=== PATIENT | male | born 1940 | race Caucasian/White ===

== ENCOUNTER 2017-02-15 10:40 | Day surgery (SDC) | payer MEDICARE ==
--- NOTE | ~2017-02-15 | EGD ---
EGD REPORT [facility] [address] [place] [address] NAME: LALIT SALINAS : [birth year] STATUS : REG [facility]#: [id number] AGE: 76 ADM/REG DATE : 02/15/17 MR#: [id number] REPORT SERV DATE: 02/15/17 DICTATED BY: ANDREW VAUGHAN DATE: 02/15/17 REPORT STATUS : Draft TRANSCRIBED BY: [facility] DATE: 02/15/17 Endoscopy Center Patient Name: Lalit Salinas Date of : 1940 Attending MD: ANDREW VAUGHAN, Procedure Date No Time: 02/15/2017 Procedure: Upper EUS Indications: Abnormal abdominal PET scan. Periduodenal lesion noted with uptake. History of Lung squamous cell cancer Referring MD: David HUTCHINSON Medicines: Monitored Anesthesia Care Complications: No immediate complications. Estimated blood loss: None. Procedure: Pre-Anesthesia Assessment: - ASA Grade Assessment: IV - A patient with severe systemic disease that is a constant threat to life. After obtaining informed consent, the endoscope was passed under direct vision. Throughout the procedure, the patient's blood pressure, pulse, and oxygen saturations were monitored continuously. The Endoscope was introduced through the mouth, and advanced to the second part of duodenum. The GIF [id number] was introduced through the mouth, and advanced to the second part of duodenum. Findings: Endoscopic Finding : The examined esophagus was endoscopically normal. Diffuse moderate inflammation characterized by erythema was found in the entire examined stomach. The exam of the stomach was otherwise normal. The cardia and gastric fundus were normal on retroflexion. The examined duodenum was endoscopically normal. Endosonographic Finding : One enlarged lymph node was visualized in the peripancreatic region. This adjacent to the pancreas in the second portion of the duodenum. It measured 12 mm by 8 mm in maximal cross-sectional diameter. The node was oval, hypoechoic and had well defined margins. Fine needle aspiration was performed. Color Doppler imaging was utilized prior to needle puncture to confirm a lack of significant vascular structures within the needle path. Six passes were made with the 22 gauge needle and with the 25 gauge needle using a transduodenal approach. No stylet was used. A preliminary cytologic examination was not performed. Final cytology results are pending. There was no sign of significant endosonographic abnormality in the entire pancreas. The pancreas was well visualized, no pathologic EGD REPORT [address] [address] NAME: LALIT SALINAS : 40 STATUS : REG [facility] PAT#: [id number] AGE: 76 ADM/REG DATE : 02/15/17 MR#: [id number] REPORT SERV DATE: 02/15/17 DICTATED BY: ANDREW VAUGHAN DATE: 02/15/17 REPORT STATUS : Draft TRANSCRIBED BY: [facility] DATE: 02/15/17 lymphadenopathy, no masses, no calcifications, the pancreatic duct was well visualized from ampulla to tail, the pancreatic duct was regular in contour. There was no sign of significant endosonographic abnormality in the common bile duct. Endosonographic images of the stomach were unremarkable. There was no sign of significant endosonographic abnormality in the esophagus. Impression: - Normal esophagus. - Gastritis. - Normal examined duodenum. - One enlarged lymph node was visualized in the peripancreatic region. - There was no sign of significant pathology in the entire pancreas. - There was no sign of significant pathology in the common bile duct. - Endosonographic images of the stomach were unremarkable. - There was no sign of significant pathology in the esophagus. Recommendation: - Return to previous diet. - Continue present medications. - Await cytology results. - Return to referring physician. Procedure Code(s): --- Professional --- 76363, Esophagogastroduodenoscopy, flexible, transoral; with transendoscopic ultrasound-guided intramural or transmural fine needle aspiration/biopsy(s) (includes endoscopic ultrasound examination of the esophagus, stomach, and either the duodenum or a surgically altered stomach where the jejunum is examined distal to the anastomosis) Diagnosis Code(s): --- Professional --- K29.70, Gastritis, unspecified, without bleeding R59.0, Localized enlarged lymph nodes R93.5, Abnormal findings on diagnostic imaging of other abdominal regions, including retroperitoneum CPT copyright 2013 [employer]. All rights reserved. The codes documented in this report are preliminary and upon social worker psychiatric review may EGD REPORT [facility] [address] [address] NAME: LALIT SALINAS : [birth year] STATUS : REG [facility] PAT#: [id number] AGE: 76 ADM/REG DATE : 02/15/17 MR#: [id number] REPORT SERV DATE: 02/15/17 DICTATED BY: ANDREW VAUGHAN DATE: 02/15/17 REPORT STATUS : Draft TRANSCRIBED BY: [email or web address] DATE: 02/15/17 be revised to meet current compliance requirements. ANDREW VAUGHAN 02/15/2017 1:26 PM Number of Addenda: 0 Note Initiated On: 02/15/2017 12:46 PM Scope Withdrawal Time 0 hours 0 minutes 0 seconds [address] [place] [address]
[~2017-02-15 10:40] MED LIST: ASAB PO; CO Q-10100 MG PO; COZAAR100 MG PO; DIOVAN HC1 PO; FERROUS SULFATE; LOP100 PO; NORCO1 TA1 PO; NORV10 PO; NORV5 PO; OXYCOD PO; PRILO PO; SPIRIVA INH; XARELTO15 MG PO; XARELTO20 MG PO; ZOCOR20 PO; ZOFRAN4 PO/SL
[2017-02-15 11:11] LABS: BUN (BLOOD UREA NITROGEN) 14 MG/DL (6-23); CALCIUM, SERUM 8.8 MG/DL (8.5-10.4); CHLORIDE, SERUM 102 MMOL/L (96-112); CO2 (CARBON DIOXIDE) 30 MMOL/L (24-34); CREATININE 1.06 MG/DL (0.70-1.30); GFR AFRICAN AMERICAN 79 ML/MIN (>=60); GFR NON AFRICAN AMERICAN 68 ML/MIN (>=60); GLUCOSE, SERUM 113 MG/DL (60-99); SODIUM, SERUM 136 MMOL/L (135-148)
== END 2017-02-15 23:59 | disposition home or self-care (01) ==
LOC: DMU 10:40
PROVIDERS: Anesthesiology; Internal Medicine Gastroenterology
PROC: 0F9G4ZX Drainage of Pancreas, Percutaneous Endoscopic Approach, Diagnostic (ICD-10-PCS; principal; 2017-02-15 12:30)
DX: R59.0 Localized enlarged lymph nodes (principal); K29.70 Gastritis, unspecified, without bleeding; R93.5 Abnormal findings on diagnostic imaging of other abdominal regions, including retroperitoneum; J44.9 Chronic obstructive pulmonary disease, unspecified; K21.9 Gastro-esophageal reflux disease without esophagitis; K22.70 Barrett's esophagus without dysplasia; M19.90 Unspecified osteoarthritis, unspecified site; I25.2 Old myocardial infarction; M54.9 Dorsalgia, unspecified; R10.9 Unspecified abdominal pain; H91.90 Unspecified hearing loss, unspecified ear; I25.10 Atherosclerotic heart disease of native coronary artery without angina pectoris; R53.1 Weakness; N40.0 Benign prostatic hyperplasia without lower urinary tract symptoms; Z86.73 Personal history of transient ischemic attack (TIA), and cerebral infarction without residual deficits; Z95.5 Presence of coronary angioplasty implant and graft; Z87.891 Personal history of nicotine dependence; Z85.118 Personal history of other malignant neoplasm of bronchus and lung; Z98.41 Cataract extraction status, right eye; Z98.42 Cataract extraction status, left eye; Z96.1 Presence of intraocular lens; Z90.49 Acquired absence of other specified parts of digestive tract; Z79.899 Other long term (current) drug therapy
CPT/HCPCS: 80048; 88173; 88305; 88312; C1725